=== PATIENT | female | born 1955 ===

== ENCOUNTER → 2019-01-08 | Emergency (ER) | payer OTHER ==
[~2019-01-08] VITALS: Ht 162.6 cm; Wt 83.9 kg
[~2019-01-08] MED LIST: ASA81 MG; FOLIC ACID1 MG; LISINOPRIL-HCT1 EACH; LOPRESSOR25 MG
== END | disposition home or self-care (01) ==
LOC: ER 09:10
DX: R07.89 Other chest pain (principal); R20.0 Anesthesia of skin; F06.4 Anxiety disorder due to known physiological condition

== ENCOUNTER 2020-04-03 09:47 | Outpatient (CLI) | payer OTHER | END 2020-04-03 09:52 | disposition home or self-care (01) | LOC: NUCLEAR 09:47 | PROVIDERS: ATTEND Internal Medicine Cardiovascular Disease | DX: I20.1 Angina pectoris with documented spasm (principal) | CPT/HCPCS: 78452; 93017; A9500; J0153 ==

== ENCOUNTER 2021-05-20 11:55 | Emergency (ER) | payer OTHER ==
[~2021-05-20] VITALS: Ht 162.6 cm; Wt 77.1 kg
[2021-05-20] MEDS ORDERED: CIPRO500 MG PO (16:44)
[2021-05-20] MEDS ORDERED: PEPCID AC20 MG PO (16:44)
== END 2021-05-20 17:41 | disposition home or self-care (01) ==
LOC: ER 11:55
DX: K29.60 Other gastritis without bleeding (principal)